=== PATIENT | female | born 1980 | race Caucasian/White ===

== ENCOUNTER 2017-08-14 15:13 | Outpatient (CLI) | payer MEDICAID ==
[2017-08-14] MEDS: LACTATED RINGER'S 1,000 ML IV ×2 (17:15→22:57)
[2017-08-14] MEDS: TERBUTALINE 1 MG/ML INJ SC ×2 (17:15→23:02)
[2017-08-14 17:49] LABS: ADD MAN DIFF? NO
[2017-08-14 18:27] LABS: WHITE BLOOD COUNT 13.6 10^3/ul (4.8-10.8)
[2017-08-14 18:27] LABS: BASOPHILS % 0.3 % (0.0-2.0); EOSINOPHILS # 0.1 10^3/ul (0.0-0.5); EOSINOPHILS % 0.4 % (0.0-7.0); HEMATOCRIT 35.7 % (37.0-47.0); HEMOGLOBIN 12.1 g/dl (12.0-16.0); LYMPHOCYTES # 2.7 10^3/ul (0.8-2.9); LYMPHOCYTES % 19.5 % (15.0-51.0); MEAN CORPUSCULAR HEMOGLOBIN 28.6 pg (29.0-33.0); MEAN CORPUSCULAR HGB CONC 33.9 g/dl (32.0-37.0); MEAN CORPUSCULAR VOLUME 84.4 fl (82.0-101.0); MONOCYTE # 0.8 10^3/ul (0.3-0.9); MONOCYTES % 5.6 % (0.0-11.0); NEUTROPHILS % 73.6 % (39.0-77.0); PLATELET COUNT 200 10^3/UL (140-415); RED BLOOD COUNT 4.23 10^6/ul (4.20-5.40); RED CELL DISTRIBUTION WIDTH 13.7 % (11.5-14.5)
[2017-08-14] MEDS ORDERED: LACTATED RINGER'S 500 ML IV (20:15)
[2017-08-14 20:19] LABS: RUPTURE FETAL MEMBRANES NEGATIVE (NEGATIVE)
[2017-08-14] MEDS ORDERED: METHYLERGONOVINE 0.2 MG INJ IM (20:30)
[2017-08-14] MEDS ORDERED: IBUPROFEN 600 MG TAB PO (20:30)
[2017-08-14] MEDS ORDERED: BUTORPHANOL 2 MG INJ IV ×2 (20:30)
[2017-08-14] MEDS ORDERED: HYDROCODONE/APAP (5/325) TAB PO (20:30)
[2017-08-14] MEDS ORDERED: AMPICILLIN 2 GM/NS (PMX) 100 ML IV (20:30)
[2017-08-14] MEDS ORDERED: MISOPROSTOL 200 MCG TAB PR (20:30)
[2017-08-14] MEDS ORDERED: OXYTOCIN 30 UNITS/LR 500 ML IV ×3 (20:30)
[2017-08-14] MEDS ORDERED: CARBOPROST 250 MCG INJ IM (20:30)
[2017-08-14] MEDS ORDERED: LIDOCAINE 1% (MPF) 30 ML INJ INJ (20:30)
[2017-08-14 22:28] LABS: ADD UMIC YES; UR ASCORBIC ACID NEGATIVE (NEGATIVE); UR BILIRUBIN (Dip) NEGATIVE (NEGATIVE); UR BLOOD (Dip) 1+ mg/dL (NEGATIVE); UR CLARITY CLEAR (CLEAR); UR COLOR STRAW (YELLOW); UR GLUCOSE (Dip) NEGATIVE (NEGATIVE); UR KETONES (Dip) 1+ mg/dL (NEGATIVE); UR LEUKOCYTE ESTERASE (Dip) NEGATIVE Leu/ul (NEGATIVE); UR NITRITE (Dip) NEGATIVE (NEGATIVE); UR RBC 0 /HPF (0-5); UR SPECIFIC GRAVITY (Dip) 1.008 (1.003-1.030); UR TOTAL PROTEIN (Dip) NEGATIVE (NEGATIVE); UR UROBILINOGEN (Dip) NEGATIVE (NEGATIVE); UR WBC 0 /HPF (0-5)
[2017-08-14] MEDS ORDERED: TERBUTALINE 1 ML (22:50)
[2017-08-15] MEDS ORDERED: TERBUTALINE 1 MG/ML INJ SC
[2017-08-15] MEDS ORDERED: AMPICILLIN 1 GM/NS (PMX) 50 ML IV (00:30)
[2017-08-15] MEDS: LACTATED RINGER'S 1,000 ML IV (02:42)
== END 2017-08-15 03:10 | disposition home or self-care (01) ==
LOC: OBT 15:13 → L-D 15:15
DX: O62.9 Abnormality of forces of labor, unspecified (principal); O09.512 Supervision of elderly primigravida, second trimester; Z3A.26 26 weeks gestation of pregnancy
CPT/HCPCS: 71045; 76817; 76818; 81001; 82731; 84112; 85025; 87086; 96360; 96361; 96372

== ENCOUNTER 2017-10-30 17:53 | Inpatient (IN) | payer MEDICAID ==
[2017-10-30] MEDS ORDERED: BUTORPHANOL 2 MG INJ IV (21:30)
[2017-10-30] MEDS ORDERED: METHYLERGONOVINE 0.2 MG INJ IM (21:30)
[2017-10-30] MEDS ORDERED: CARBOPROST 250 MCG INJ IM (21:30)
[2017-10-30] MEDS ORDERED: IBUPROFEN 600 MG TAB PO (21:30)
[2017-10-30] MEDS ORDERED: MISOPROSTOL 200 MCG TAB PR (21:30)
[2017-10-30] MEDS ORDERED: LIDOCAINE 1% (MPF) 30 ML INJ INJ (21:30)
[2017-10-30] MEDS ORDERED: OXYTOCIN 30 UNITS/LR 500 ML IV (21:30)
[2017-10-30] MEDS: LACTATED RINGER'S 1,000 ML IV ×2 (21:40→22:13)
[2017-10-30 21:43] LABS: ADD UMIC YES; UR ASCORBIC ACID 20 mg/dL (NEGATIVE); UR BILIRUBIN (Dip) NEGATIVE (NEGATIVE); UR BLOOD (Dip) 3+ mg/dL (NEGATIVE); UR CLARITY CLOUDY (CLEAR); UR COLOR YELLOW (YELLOW); UR GLUCOSE (Dip) NEGATIVE (NEGATIVE); UR KETONES (Dip) 1+ mg/dL (NEGATIVE); UR LEUKOCYTE ESTERASE (Dip) 1+ Leu/ul (NEGATIVE); UR MUCUS FEW /HPF (NONE SEEN); UR NITRITE (Dip) NEGATIVE (NEGATIVE); UR RBC 47 /HPF (0-5); UR SPECIFIC GRAVITY (Dip) 1.014 (1.003-1.030); UR SQUAMOUS EPITHELIAL CELL FEW /HPF (FEW); UR TOTAL PROTEIN (Dip) NEGATIVE (NEGATIVE); UR UROBILINOGEN (Dip) NEGATIVE (NEGATIVE); UR WBC 24 /HPF (0-5)
[2017-10-30] MEDS: AMPICILLIN 2 GM/NS (PMX) 100 ML IV (21:53)
[2017-10-30 21:57] LABS: ADD MAN DIFF? NO
[2017-10-30 22:18] LABS: INR 0.92; PROTIME 12.4 Sec (11.9-14.9)
[2017-10-30 22:19] LABS: PARTIAL THROMBOPLASTIN TIME 27.5 Sec (25.0-35.0)
[2017-10-30 22:22] LABS: ALANINE AMINOTRANSFERASE 30 IU/L (13-69); ALBUMIN 3.9 g/dl (3.3-4.9); ALBUMIN/GLOBULIN RATIO 1.18; ALKALINE PHOSPHATASE 221 IU/L (42-121); ANION GAP 18 (8-16); ASPARTATE AMINO TRANSFERASE 28 IU/L (15-46); BILIRUBIN,INDIRECT 0.2 mg/dl (0-1.1); BILIRUBIN,TOTAL 0.2 mg/dl (0.2-1.3); BLOOD UREA NITROGEN 12 mg/dl (7-20); CALCIUM 9.9 mg/dl (8.4-10.2); CARBON DIOXIDE 19 mmol/L (21-31); CHLORIDE 107 mmol/L (97-110); CREATININE 0.52 mg/dl (0.44-1.00); GLUCOSE 103 mg/dl (70-220); POTASSIUM 4.2 mmol/L (3.5-5.1); SODIUM 140 mmol/L (135-144); TOTAL PROTEIN 7.2 g/dl (6.1-8.1)
[2017-10-30 22:37] LABS: ABNORMAL IP MESSAGE 1; BASOPHILS % 0.3 % (0.0-2.0); EOSINOPHILS % 0.3 % (0.0-7.0); HEMATOCRIT 39.7 % (37.0-47.0); HEMOGLOBIN 13.5 g/dl (12.0-16.0); LYMPHOCYTES # 2.5 10^3/ul (0.8-2.9); LYMPHOCYTES % 16.3 % (15.0-51.0); MEAN CORPUSCULAR HEMOGLOBIN 28.3 pg (29.0-33.0); MEAN CORPUSCULAR VOLUME 83.2 fl (82.0-101.0); MEAN PLATELET VOLUME 13.4 fl (7.4-10.4); MONOCYTE # 0.7 10^3/ul (0.3-0.9); MONOCYTES % 4.8 % (0.0-11.0); NEUTROPHIL # 11.8 10^3/ul (1.6-7.5); NEUTROPHILS % 77.6 % (39.0-77.0); PLATELET COUNT 216 10^3/UL (140-415); RED BLOOD COUNT 4.77 10^6/ul (4.20-5.40); RED CELL DISTRIBUTION WIDTH 13.7 % (11.5-14.5)
[2017-10-30 22:37] LABS: WHITE BLOOD COUNT 15.2 10^3/ul (4.8-10.8)
[2017-10-30 22:38] LABS: POSITIVE DIFF @See below
[2017-10-30 22:52] LABS: HEPATITIS B SURFACE ANTIGEN NEGATIVE (NEGATIVE)
[2017-10-30] MEDS ORDERED: FENTAnyl 2MCG/ML-ROPIV 0.2% 100 ML (22:57)
[2017-10-30] MEDS ORDERED: NALOXONE (0.4 MG/ML) INJ IV (23:00)
[2017-10-30] MEDS ORDERED: DIPHENHYDRAMINE 50 MG INJ IV (23:00)
[2017-10-30] MEDS ORDERED: EPHEDrine SULFATE 50 MG/5 ML SYG IV (23:00)
[2017-10-30] MEDS ORDERED: ONDANSETRON 4 MG INJ IV (23:00)
[2017-10-31] MEDS: AMPICILLIN 1 GM/NS (PMX) 50 ML IV ×3 (01:42→10:50)
[2017-10-31] MEDS: FENTAnyl 2MCG/ML-ROPIV 0.2% 100 ML BAG EPI (10:53)
[2017-10-31] MEDS: OXYTOCIN 30 UNITS/LR 500 ML IV ×3 (11:31→16:07)
[2017-10-31] MEDS: MINERAL OIL LIGHT 10 ML VIAL TOP (11:33)
[2017-10-31] MEDS: CEPHALEXIN 500 MG CAP PO ×2 (14:00→17:39)
[2017-10-31 15:04] LABS: RAPID PLASMA REAGIN NONREACTIVE (NR)
[2017-10-31] MEDS ORDERED: LANOLIN 7 GM TUBE TOP (15:30)
[2017-10-31] MEDS ORDERED: METHYLERGONOVINE 0.2 MG INJ IM (15:30)
[2017-10-31] MEDS ORDERED: OXYCODONE/ASPIRIN (4.88/325) TAB PO ×2 (15:30)
[2017-10-31] MEDS ORDERED: MISOPROSTOL 200 MCG TAB PR (15:30)
[2017-10-31] MEDS ORDERED: ZOLPIDEM 5 MG TAB PO (15:30)
[2017-10-31] MEDS ORDERED: CARBOPROST 250 MCG INJ IM (15:30)
[2017-10-31] MEDS: BENZOCAINE 20% 56 ML SPRAY TOP (16:05)
[2017-10-31] MEDS: WITCH HAZEL/GLYCERIN PAD PR (16:05)
[2017-10-31] MEDS: IBUPROFEN 600 MG TAB PO (17:39)
[2017-10-31] MEDS: SENNA/DOCUSATE NA (8.6MG/50MG) TAB PO (21:13)
[2017-11-01] MEDS: IBUPROFEN 600 MG TAB PO ×3 (00:09→11:48)
[2017-11-01] MEDS: CEPHALEXIN 500 MG CAP PO ×3 (00:09→11:48)
[2017-11-01] MEDS: SENNA/DOCUSATE NA (8.6MG/50MG) TAB PO (08:56)
[2017-11-01 09:27] LABS: ADD MAN DIFF? NO
[2017-11-01 09:33] LABS: WHITE BLOOD COUNT 17.3 10^3/ul (4.8-10.8)
[2017-11-01 09:33] LABS: BASOPHILS % 0.2 % (0.0-2.0); EOSINOPHILS # 0.1 10^3/ul (0.0-0.5); EOSINOPHILS % 0.3 % (0.0-7.0); HEMOGLOBIN 11.5 g/dl (12.0-16.0); LYMPHOCYTES # 2.2 10^3/ul (0.8-2.9); LYMPHOCYTES % 12.8 % (15.0-51.0); MEAN CORPUSCULAR HEMOGLOBIN 28.4 pg (29.0-33.0); MEAN CORPUSCULAR HGB CONC 33.8 g/dl (32.0-37.0); MEAN PLATELET VOLUME 12.5 fl (7.4-10.4); MONOCYTE # 0.6 10^3/ul (0.3-0.9); MONOCYTES % 3.3 % (0.0-11.0); NEUTROPHIL # 14.3 10^3/ul (1.6-7.5); NEUTROPHILS % 82.7 % (39.0-77.0); PLATELET COUNT 161 10^3/UL (140-415); RED BLOOD COUNT 4.05 10^6/ul (4.20-5.40); RED CELL DISTRIBUTION WIDTH 14.4 % (11.5-14.5)
[2017-11-02] MEDS ORDERED: DIPHTH/TET/ACEL PERTUSS (ADULT) 0.5 ML VIAL IM* (09:00)
== END 2017-11-01 16:16 | disposition home or self-care (01) | DRG 775 ==
LOC: OBT 17:53 → L-D 17:54 → PP1 10-31 15:07 → L-D 19:44 → OBT 20:56 → L-D 20:56 → OBT 20:55 → L-D 20:55
PROC: 4A1HXCZ Monitoring of Products of Conception, Cardiac Rate, External Approach (ICD-10-PCS; 2017-10-30)
PROC: 10E0XZZ Delivery of Products of Conception, External Approach (ICD-10-PCS; principal; 2017-10-31)
DX: O35.8XX0 Maternal care for other (suspected) fetal abnormality and damage, not applicable or unspecified (principal); Z37.0 Single live birth; Z3A.37 37 weeks gestation of pregnancy
CPT/HCPCS: 36415; 62319; 80053; 81001; 84560; 85025; 85610; 85730; 86592; 86850; 86900; 86901; 87340